=== PATIENT | male | born 1980 | race Caucasian/White ===

== ENCOUNTER 2021-05-15 21:16 | Emergency (ER) | payer SELFPAY ==
[~2021-05-15] VITALS: Ht 185.4 cm; Wt 72.0 kg
[2021-05-15] MEDS ORDERED: LORAZEPAM 1MG TABLET PO ONE (21:45)
[2021-05-15] MEDS ORDERED: MAGNESIUM/ALUMINUM HYDROXIDE/SIMETHICONE 30ML UDC PO ONE (21:45)
[2021-05-15] MEDS ORDERED: LORAZEPAM 2MG/ML CPJ IM STA (22:19)
[2021-05-15] MEDS ORDERED: HALOPERIDOL LACTATE 5MG/ML VIAL IM STA (22:19)
[2021-05-15] MEDS ORDERED: DIPHENHYDRAMINE 50MG/ML VIAL IM STA (22:19)
[2021-05-16 00:20] LABS: BASOPHILS % 0.5 % (0.0-2.0); EOSINOPHILS % 1.2 % (0.0-5.0); HEMATOCRIT. 43.9 % (42.0-52.0); HEMOGLOBIN. 14.9 g/dL (14.0-18.0); LYMPHOCYTES % 23.7 % (20.0-50.0); MEAN CORPUSCULAR HEMOGLOBIN 30.7 pg (28.0-32.0); MEAN CORPUSCULAR VOLUME 90.6 fL (80.0-94.0); MEAN PLATELET VOLUME 8.3 fl (7.4-10.4); MONOCYTES % 8.6 % (2.0-8.0); PLATELET 175 x1000/uL (130-400); RED BLOOD CELL COUNT 4.85 mill/uL (4.7-6.1); RED CELL DISTRIBUTION WIDTH 13.9 % (11.6-14.6)
[2021-05-16 00:25] LABS: CHLORIDE 107 mEq/L (98-107)
[2021-05-16 00:29] LABS: CLARITY URINE CLEAR (CLEAR); COLOR URINE YELLOW (YELLOW); KETONES URINE NEGATIVE (NEGATIVE); LEUKOCYTE ESTERASE URINE NEGATIVE (NEGATIVE); NITRITE URINE NEGATIVE (NEGATIVE); OCCULT BLOOD URINE NEGATIVE (NEGATIVE); PROTEIN URINE NEGATIVE (NEGATIVE); SPECIFIC GRAVITY URINE 1.012 (1.005-1.030); UROBILINOGEN URINE 0.2 E.U./dL (0.2-1.0)
[2021-05-16 00:34] LABS: ETHANOL BLOOD < 10 mg/dL
[2021-05-16 00:47] LABS: CANNABINOID URINE SCREEN PRESUMTIVE POSITIVE (NEGATIVE); OPIATES URINE SCREEN NEGATIVE (NEGATIVE); PHENCYCLIDINE URINE SCREEN NEGATIVE (NEGATIVE)
[2021-05-16 00:48] LABS: *AMPHETAMINES SCREEN URINE PRESUMTIVE POSITIVE (NEGATIVE); *BARBITURATES SCREEN URINE NEGATIVE (NEGATIVE); *BENZODIAZEPINES SCREEN URINE NEGATIVE (NEGATIVE); *COCAINE SCREEN URINE NEGATIVE (NEGATIVE)
[2021-05-16 01:05] LABS: METHADONE URINE SCREEN NEGATIVE (NEGATIVE)
[2021-05-16 04:51] VITALS: BP 97/67
== END 2021-05-16 04:52 | disposition home or self-care (01) ==
LOC: ER 21:16
DX: R06.02 Shortness of breath (principal); F19.10 Other psychoactive substance abuse, uncomplicated; I10 Essential (primary) hypertension; F17.290 Nicotine dependence, other tobacco product, uncomplicated; F12.10 Cannabis abuse, uncomplicated; F15.10 Other stimulant abuse, uncomplicated
CPT/HCPCS: 36415; 71045; 80053; 80305; 80307; 80320; 80329; 81003; 85025; 93005; 96372; 99285; J1200; J1630; J2060; G0480

== ENCOUNTER 2021-07-17 22:56 | Inpatient (IN) | payer MEDICAID ==
[~2021-07-17] VITALS: Ht 180.3 cm; Wt 81.6 kg
[2021-07-17] MEDS ORDERED: ACETAMINOPHEN 325MG TABLET PO STA (23:16)
[2021-07-17] MEDS ORDERED: PIPERACILLIN/TAZ 3.375G PREMIX 50 ML IV ONE (23:30)
[2021-07-17] MEDS ORDERED: VANCOMYCIN 1G PREMIX 200 ML IV ONE (23:30)
[2021-07-17] MEDS ORDERED: SODIUM CHLORIDE 0.9% 1000ML BAG (SEPSIS BOLUS) IV ONE (23:30)
[2021-07-17 23:43] LABS: BASOPHILS % 0.5 % (0.0-2.0); EOSINOPHILS % 1.3 % (0.0-5.0); HEMATOCRIT. 40.3 % (42.0-52.0); HEMOGLOBIN. 13.8 g/dL (14.0-18.0); MEAN CORPUSCULAR HEMOGLOBIN 30.9 pg (28.0-32.0); MEAN CORPUSCULAR VOLUME 90.2 fL (80.0-94.0); MEAN PLATELET VOLUME 7.7 fl (7.4-10.4); MONOCYTES % 10.3 % (2.0-8.0); NEUTROPHILS % 70.9 % (40.0-76.0); PLATELET 277 x1000/uL (130-400); RED BLOOD CELL COUNT 4.47 mill/uL (4.7-6.1); RED CELL DISTRIBUTION WIDTH 13.5 % (11.6-14.6)
[2021-07-17 23:48] LABS: CHLORIDE 103 mEq/L (98-107)
[2021-07-18] MEDS ORDERED: VANCOMYCIN 1GM PMX (XELLIA) 200 ML IV SCH
[2021-07-18 09:04] VITALS: BP 113/68
[2021-07-18 09:14] VITALS: BP 113/68
[2021-07-18] MEDS ORDERED: LORAZEPAM 0.5MG TABLET PO PRN (11:00)
[2021-07-18] MEDS ORDERED: CLONIDINE 0.1MG TABLET PO PRN (11:00)
[2021-07-18] MEDS ORDERED: ACETAMINOPHEN 325MG TABLET PO PRN (11:00)
[2021-07-18] MEDS ORDERED: IPRATROPIUM/ALBUTEROL 0.5-3(2.5)MG/3ML NEB HHN PRN (11:00)
[2021-07-18] MEDS ORDERED: DOCUSATE SODIUM 100MG CAPSULE PO PRN (11:00)
[2021-07-18] MEDS ORDERED: NALOXONE HCL 0.4MG/ML VIAL IV PRN (11:45)
[2021-07-18 12:00] VITALS: BP 123/67
[2021-07-18] MEDS ORDERED: SODIUM CHLORIDE 0.9% 1,000 ML IV SCH (12:00)
[2021-07-18] MEDS: VANCOMYCIN 1.25GM PMX (XELLIA) 250 ML IV SCH ×2 (13:51→21:59)
[2021-07-18] MEDS ORDERED: IOHEXOL-300 100 ML BOTTLE ONE (14:03)
[2021-07-18 14:10] LABS: *AMPHETAMINES SCREEN URINE NEGATIVE (NEGATIVE); *BARBITURATES SCREEN URINE NEGATIVE (NEGATIVE); *BENZODIAZEPINES SCREEN URINE NEGATIVE (NEGATIVE); *COCAINE SCREEN URINE NEGATIVE (NEGATIVE); METHADONE URINE SCREEN NEGATIVE (NEGATIVE)
[2021-07-18 14:11] LABS: CANNABINOID URINE SCREEN NEGATIVE (NEGATIVE); OPIATES URINE SCREEN NEGATIVE (NEGATIVE); PHENCYCLIDINE URINE SCREEN NEGATIVE (NEGATIVE)
[2021-07-18] MEDS: PIPERACILLIN/TAZOBACTAM 3.375 G in DEXTROSE 5% WATER 50 ML IV SCH ×2 (15:24→21:59)
[2021-07-18 18:04] VITALS: BP 110/75
[2021-07-18 20:00] VITALS: BP 102/60
[2021-07-19] VITALS: BP 109/66
[2021-07-19 04:00] VITALS: BP 111/61
[2021-07-19] MEDS: PIPERACILLIN/TAZOBACTAM 3.375 G in DEXTROSE 5% WATER 50 ML IV SCH ×3 (05:39→22:01)
[2021-07-19] MEDS: VANCOMYCIN 1.25GM PMX (XELLIA) 250 ML IV SCH ×2 (05:39→22:03)
[2021-07-19 08:00] VITALS: BP 105/61
[2021-07-19 12:00] VITALS: BP 110/68
[2021-07-19] MEDS ORDERED: SODIUM CHLORIDE 0.9% 1,000 ML IV SCH (12:00)
[2021-07-19] MEDS ORDERED: POLYMYXIN B SULFATE 500000 UNITS/VIAL ONE (15:18)
[2021-07-19] MEDS ORDERED: LIDOCAINE HCL/EPINEPHRINE 1%-EPI 1:100,000 20 ML VIAL ONE (15:18)
[2021-07-19] MEDS ORDERED: VANCOMYCIN HCL 1 GM/VIAL ONE (15:19)
[2021-07-19] MEDS ORDERED: LIDOCAINE HCL 1% 20ML VIAL (Pyxis) INJ ONE (16:13)
[2021-07-19] MEDS ORDERED: PROPOFOL 200MG/20ML VIAL IV ONE ×2 (16:13→17:02)
[2021-07-19] MEDS ORDERED: FENTANYL CITRATE/PF 50MCG/ML 2ML VIAL ONE (16:55)
[2021-07-19] MEDS ORDERED: MIDAZOLAM HCL 2 MG/2 ML VIAL ONE (16:56)
[2021-07-19] MEDS ORDERED: ROPIVACAINE HCL 10MG/ML 20 ML VIAL EPI ONE (17:26)
[2021-07-19] MEDS ORDERED: LABETALOL 5MG/ML SYR 20 MG/4 ML SYRINGE IV PRN (17:45)
[2021-07-19] MEDS ORDERED: MEPERIDINE HCL/PF 25MG/ML CPJ IV PRN (17:45)
[2021-07-19] MEDS ORDERED: ONDANSETRON HCL 4MG/2ML INJ IV PRN (17:45)
[2021-07-19] MEDS: HYDROMORPHONE HCL/PF 2MG/ML CPJ IV PRN ×2 (18:19→18:30)
[2021-07-19 20:00] VITALS: BP 125/71
[2021-07-19 20:42] LABS: CHLORIDE 107 mEq/L (98-107)
[2021-07-20] VITALS: BP 139/80
[2021-07-20] MEDS: VANCOMYCIN 1.25GM PMX (XELLIA) 250 ML IV SCH ×2 (02:58→21:42)
[2021-07-20 04:00] VITALS: BP 138/71
[2021-07-20] MEDS: HYDROCODONE/ACETAMINOPHEN 5/325MG TABLET PO PRN (04:34)
[2021-07-20] MEDS: PIPERACILLIN/TAZOBACTAM 3.375 G in DEXTROSE 5% WATER 50 ML IV SCH ×2 (06:29→18:32)
[2021-07-20 06:48] LABS: CHLORIDE 105 mEq/L (98-107)
[2021-07-20 07:01] LABS: BASOPHILS % 0.5 % (0.0-2.0); HEMATOCRIT. 39.5 % (42.0-52.0); HEMOGLOBIN. 13.5 g/dL (14.0-18.0); LYMPHOCYTES % 22.8 % (20.0-50.0); MEAN CORPUSCULAR HEMOGLOBIN 30.5 pg (28.0-32.0); MEAN CORPUSCULAR VOLUME 89.5 fL (80.0-94.0); MEAN PLATELET VOLUME 7.5 fl (7.4-10.4); MONOCYTES % 8.8 % (2.0-8.0); NEUTROPHILS % 64.9 % (40.0-76.0); PLATELET 348 x1000/uL (130-400); RED BLOOD CELL COUNT 4.41 mill/uL (4.7-6.1); RED CELL DISTRIBUTION WIDTH 13.6 % (11.6-14.6)
[2021-07-20 08:00] VITALS: BP 121/76
[2021-07-20] MEDS: HYDROCODONE/ACETAMINOPHEN 10/325MG TABLET PO PRN (08:04)
[2021-07-20 12:00] VITALS: BP 108/65
[2021-07-20] MEDS: MORPHINE SULFATE 2 MG/ML CPJ (NOT FOR IM USE) IV PRN ×2 (13:24→18:34)
[2021-07-20] MEDS: VANCOMYCIN 1GM PMX (XELLIA) 200 ML IV SCH ×2 (13:24→21:43)
[2021-07-20 16:00] VITALS: BP 121/72
[2021-07-20 20:00] VITALS: BP 109/69
[2021-07-21] VITALS: BP 112/65
[2021-07-21 04:00] VITALS: BP 113/71
[2021-07-21] MEDS: VANCOMYCIN 1GM PMX (XELLIA) 200 ML IV SCH ×3 (05:01→21:48)
[2021-07-21] MEDS: MORPHINE SULFATE 2 MG/ML CPJ (NOT FOR IM USE) IV PRN ×2 (05:09→15:14)
[2021-07-21 08:10] VITALS: BP 122/73
[2021-07-21 10:16] LABS: BASOPHILS % 0.7 % (0.0-2.0); EOSINOPHILS % 3.4 % (0.0-5.0); HEMATOCRIT. 40.7 % (42.0-52.0); HEMOGLOBIN. 13.7 g/dL (14.0-18.0); LYMPHOCYTES % 20.1 % (20.0-50.0); MEAN CORPUSCULAR HEMOGLOBIN 30.8 pg (28.0-32.0); MEAN CORPUSCULAR VOLUME 91.5 fL (80.0-94.0); MEAN PLATELET VOLUME 7.2 fl (7.4-10.4); MONOCYTES % 9.2 % (2.0-8.0); NEUTROPHILS % 66.6 % (40.0-76.0); PLATELET 333 x1000/uL (130-400); RED BLOOD CELL COUNT 4.45 mill/uL (4.7-6.1); RED CELL DISTRIBUTION WIDTH 13.8 % (11.6-14.6)
[2021-07-21 10:31] LABS: CHLORIDE 105 mEq/L (98-107)
[2021-07-21] MEDS: HYDROCODONE/ACETAMINOPHEN 10/325MG TABLET PO PRN ×2 (11:23→20:40)
[2021-07-21 12:02] VITALS: BP 116/70
[2021-07-21 16:10] VITALS: BP 127/68
[2021-07-21 20:00] VITALS: BP 116/71
[2021-07-22] VITALS: BP 113/67
[2021-07-22] MEDS: MORPHINE SULFATE 2 MG/ML CPJ (NOT FOR IM USE) IV PRN ×2 (00:47→14:18)
[2021-07-22 04:00] VITALS: BP 101/59
[2021-07-22 05:51] LABS: CHLORIDE 106 mEq/L (98-107); VANCOMYCIN TROUGH 14.7 ug/mL (5.0-10.0)
[2021-07-22 07:50] LABS: BASOPHILS % 1.1 % (0.0-2.0); EOSINOPHILS % 5.3 % (0.0-5.0); HEMATOCRIT. 38.1 % (42.0-52.0); HEMOGLOBIN. 13.2 g/dL (14.0-18.0); LYMPHOCYTES % 34.7 % (20.0-50.0); MEAN CORPUSCULAR HEMOGLOBIN 30.7 pg (28.0-32.0); MEAN CORPUSCULAR VOLUME 88.5 fL (80.0-94.0); MEAN PLATELET VOLUME 7.5 fl (7.4-10.4); NEUTROPHILS % 46.9 % (40.0-76.0); PLATELET 373 x1000/uL (130-400); RED CELL DISTRIBUTION WIDTH 13.4 % (11.6-14.6)
[2021-07-22] MEDS: HYDROCODONE/ACETAMINOPHEN 10/325MG TABLET PO PRN ×2 (08:28→17:53)
[2021-07-22 08:30] VITALS: BP 108/68
[2021-07-22] MEDS ORDERED: HYDR-4005 MT (09:04)
[2021-07-22] MEDS ORDERED: ACET650T37 MT (09:04)
[2021-07-22] MEDS ORDERED: NALO4SPR BOTHNSTRLS (09:04)
[2021-07-22] MEDS ORDERED: SULF1TAB48 MT (09:04)
[2021-07-22 12:30] VITALS: BP 117/59
[2021-07-22] MEDS: VANCOMYCIN 1GM PMX (XELLIA) 200 ML IV SCH ×2 (14:17→21:05)
[2021-07-22 16:30] VITALS: BP 110/66
[2021-07-22 20:00] VITALS: BP 110/63
[2021-07-22] MEDS: HYDROCODONE/ACETAMINOPHEN 5/325MG TABLET PO PRN (20:14)
[2021-07-23] VITALS: BP 105/63
[2021-07-23 04:00] VITALS: BP 101/63
[2021-07-23] MEDS: VANCOMYCIN 1GM PMX (XELLIA) 200 ML IV SCH ×3 (05:31→21:53)
[2021-07-23] MEDS: HYDROCODONE/ACETAMINOPHEN 5/325MG TABLET PO PRN ×2 (06:53→19:54)
[2021-07-23 08:00] VITALS: BP 105/60
[2021-07-23 12:00] VITALS: BP 108/62
[2021-07-23] MEDS: MORPHINE SULFATE 2 MG/ML CPJ (NOT FOR IM USE) IV PRN ×2 (12:56→17:03)
[2021-07-23 15:45] VITALS: BP 110/60
[2021-07-23 20:00] VITALS: BP 124/73
[2021-07-23] MEDS ORDERED: NALOXONE HCL 0.4MG/ML VIAL IV PRN (20:15)
[2021-07-24] VITALS: BP 116/73
[2021-07-24] MEDS: HYDROCODONE/ACETAMINOPHEN 5/325MG TABLET PO PRN ×3 (00:40→20:00)
[2021-07-24 04:00] VITALS: BP 125/72
[2021-07-24] MEDS: VANCOMYCIN 1GM PMX (XELLIA) 200 ML IV SCH ×3 (05:32→21:50)
[2021-07-24 08:15] VITALS: BP 100/61
[2021-07-24 12:26] VITALS: BP 113/64
[2021-07-24] MEDS: MORPHINE SULFATE 2 MG/ML CPJ (NOT FOR IM USE) IV PRN (14:51)
[2021-07-24 16:16] VITALS: BP 106/72
[2021-07-24 19:45] VITALS: BP 107/68
[2021-07-25] VITALS: BP 109/60
[2021-07-25 04:00] VITALS: BP 112/59
[2021-07-25] MEDS: HYDROCODONE/ACETAMINOPHEN 5/325MG TABLET PO PRN (05:02)
[2021-07-25 06:12] VITALS: BP 109/60
[2021-07-25] MEDS: VANCOMYCIN 1GM PMX (XELLIA) 200 ML IV SCH (06:22)
[2021-07-25 08:00] VITALS: BP 116/64
== END 2021-07-25 10:15 | disposition home health service (06) | DRG 720 ==
LOC: ER 22:56 → EDBEDREQDT 07-18 01:08 → EDBEDREQ 07-18 01:08 → EDBEDREQTM 07-18 01:08 → EDBEDREQSVC 07-18 01:08 → ENRESERV 07-18 07:21 → 6WST 07-18 09:01
PROVIDERS: ADMIT Internal Medicine; ATTEND Internal Medicine
PROC: 0JBN0ZZ Excision of Right Lower Leg Subcutaneous Tissue and Fascia, Open Approach (ICD-10-PCS; principal; 2021-07-19)
DX: A41.9 Sepsis, unspecified organism (principal); E44.0 Moderate protein-calorie malnutrition; L02.415 Cutaneous abscess of right lower limb; L97.819 Non-pressure chronic ulcer of other part of right lower leg with unspecified severity; L03.115 Cellulitis of right lower limb; M70.41 Prepatellar bursitis, right knee; R65.20 Severe sepsis without septic shock; F17.200 Nicotine dependence, unspecified, uncomplicated; I45.6 Pre-excitation syndrome; Z20.822 Contact with and (suspected) exposure to COVID-19; Z68.25 Body mass index [BMI] 25.0-25.9, adult
CPT/HCPCS: 36415; 73562; 73700; 80048; 80053; 80202; 80305; 83605; 84145; 85025; 86140; 87070; 87075; 87077; 87186; 87426; 93005; 93971; 97162; 97166; 97535; 99291; J1170; J2250; J2270; J2543; J2704; J2795; J3010; J3370; J3490; J7030; J7060; L1830; Q9967

== ENCOUNTER 2022-01-17 10:42 | Emergency (ER) | payer MEDICAID ==
[~2022-01-17] VITALS: Ht 182.9 cm; Wt 86.0 kg
[~2022-01-17 10:42] MED LIST: ACET-3163 MT; HYDR-4005 MT; NALO4SPR BOTHNSTRLS; SULF1TAB48 MT
[2022-01-17 10:53] VITALS: BP 114/73
[2022-01-17 11:30] LABS: CLARITY URINE CLEAR (CLEAR); COLOR URINE YELLOW (YELLOW); KETONES URINE NEGATIVE (NEGATIVE); LEUKOCYTE ESTERASE URINE NEGATIVE (NEGATIVE); NITRITE URINE NEGATIVE (NEGATIVE); OCCULT BLOOD URINE TRACE (NEGATIVE); PROTEIN URINE TRACE (NEGATIVE); UROBILINOGEN URINE 0.2 E.U./dL (0.2-1.0)
[2022-01-17 11:49] LABS: BASOPHILS % 0.9 % (0.0-2.0); EOSINOPHILS % 4.3 % (0.0-5.0); HEMATOCRIT. 43.4 % (42.0-52.0); LYMPHOCYTES % 37.9 % (20.0-50.0); MEAN CORPUSCULAR HEMOGLOBIN 31.4 pg (28.0-32.0); MEAN CORPUSCULAR VOLUME 90.7 fL (80.0-94.0); MEAN PLATELET VOLUME 7.5 fl (7.4-10.4); MONOCYTES % 9.7 % (2.0-8.0); NEUTROPHILS % 47.2 % (40.0-76.0); PLATELET 261 x1000/uL (130-400); RED BLOOD CELL COUNT 4.78 mill/uL (4.7-6.1); RED CELL DISTRIBUTION WIDTH 13.7 % (11.6-14.6)
[2022-01-17 11:50] LABS: CHLORIDE 103 mEq/L (98-107)
[2022-01-17 11:53] LABS: *AMPHETAMINES SCREEN URINE PRESUMTIVE POSITIVE (NEGATIVE); *BARBITURATES SCREEN URINE NEGATIVE (NEGATIVE); *BENZODIAZEPINES SCREEN URINE NEGATIVE (NEGATIVE); *COCAINE SCREEN URINE NEGATIVE (NEGATIVE); CANNABINOID URINE SCREEN NEGATIVE (NEGATIVE); METHADONE URINE SCREEN NEGATIVE (NEGATIVE); OPIATES URINE SCREEN NEGATIVE (NEGATIVE); PHENCYCLIDINE URINE SCREEN NEGATIVE (NEGATIVE)
[2022-01-17 11:57] LABS: ETHANOL BLOOD < 10 mg/dL
== END 2022-01-17 12:37 | disposition home or self-care (01) ==
LOC: ER 10:42
DX: F15.10 Other stimulant abuse, uncomplicated (principal); F12.10 Cannabis abuse, uncomplicated; J45.909 Unspecified asthma, uncomplicated
CPT/HCPCS: 36415; 80053; 80305; 80320; 81003; 85025; 93005; 99284; G0480

== ENCOUNTER 2022-02-24 19:01 | Emergency (ER) | payer MEDICAID ==
[~2022-02-24] VITALS: Ht 170.2 cm; Wt 77.0 kg
[2022-02-24 19:05] VITALS: BP 140/90
== END 2022-02-25 02:16 | disposition left against medical advice (07) ==
LOC: ER 19:03
DX: Z53.21 Procedure and treatment not carried out due to patient leaving prior to being seen by health care provider (principal)

== ENCOUNTER 2022-05-23 13:55 | Emergency (ER) | payer MEDICAID ==
[~2022-05-23] VITALS: Ht 177.8 cm; Wt 82.0 kg
[2022-05-23 13:58] VITALS: BP 126/80
== END 2022-05-23 17:25 | disposition left against medical advice (07) ==
LOC: ER 13:55
DX: Z53.21 Procedure and treatment not carried out due to patient leaving prior to being seen by health care provider (principal)

== ENCOUNTER 2022-05-24 20:14 | Inpatient (IN) | payer MEDICAID ==
[~2022-05-24] VITALS: Ht 180.3 cm; Wt 83.0 kg
[2022-05-24] MEDS ORDERED: CEFTRIAXONE 1GM PREMIX 50 ML IV ONE (21:45)
[2022-05-24] MEDS ORDERED: SODIUM CHLORIDE 0.9% 1000ML BAG (SEPSIS BOLUS) IV ONE (21:45)
[2022-05-24] MEDS ORDERED: VANCOMYCIN 1G PREMIX 200 ML IV ONE (21:45)
[2022-05-24 23:58] LABS: BASOPHILS % 0.5 % (0.0-2.0); EOSINOPHILS % 2.4 % (0.0-5.0); HEMOGLOBIN. 14.9 g/dL (14.0-18.0); LYMPHOCYTES % 18.3 % (20.0-50.0); MEAN CORPUSCULAR HEMOGLOBIN 30.8 pg (28.0-32.0); MEAN CORPUSCULAR VOLUME 91.1 fL (80.0-94.0); MEAN PLATELET VOLUME 7.8 fl (7.4-10.4); MONOCYTES % 8.2 % (2.0-8.0); NEUTROPHILS % 70.6 % (40.0-76.0); PLATELET 235 x1000/uL (130-400); RED BLOOD CELL COUNT 4.83 mill/uL (4.7-6.1); RED CELL DISTRIBUTION WIDTH 13.4 % (11.6-14.6)
[2022-05-25 00:07] LABS: CHLORIDE 102 mEq/L (98-107)
[2022-05-25 00:08] LABS: PROTHROMBIN TIME 10.6 sec (9.6-11.0)
[2022-05-25] MEDS ORDERED: PIPERACILLIN/TAZOBACTAM 3.375GM/50ML PREMIX IV NR (00:45)
[2022-05-25] MEDS ORDERED: IPRATROPIUM/ALBUTEROL 0.5-3(2.5)MG/3ML NEB HHN PRN (01:15)
[2022-05-25] MEDS ORDERED: DOCUSATE SODIUM 100MG CAPSULE PO PRN (01:15)
[2022-05-25] MEDS ORDERED: GUAIFENESIN 200MG/10ML SUGAR FREE UDC PO PRN (01:15)
[2022-05-25] MEDS ORDERED: ONDANSETRON HCL 4MG/2ML INJ IV PRN (01:15)
[2022-05-25] MEDS ORDERED: ACETAMINOPHEN 325MG TABLET PO PRN ×2 (01:15)
[2022-05-25] MEDS ORDERED: CLONIDINE 0.1MG TABLET PO PRN (01:15)
[2022-05-25] MEDS ORDERED: HYDROCODONE/ACETAMINOPHEN 5/325MG TABLET PO PRN (01:15)
[2022-05-25] MEDS ORDERED: VANCOMYCIN 1G PREMIX 200 ML IV NR (01:45)
[2022-05-25 04:12] LABS: ETHANOL BLOOD < 10 mg/dL; HDL CHOLESTEROL 98 mg/dL (40-59); LDL CHOLESTEROL 55 mg/dL (5-100)
[2022-05-25 05:46] LABS: BASOPHILS % 0.4 % (0.0-2.0); EOSINOPHILS % 2.3 % (0.0-5.0); HEMATOCRIT. 39.7 % (42.0-52.0); HEMOGLOBIN. 13.5 g/dL (14.0-18.0); LYMPHOCYTES % 13.7 % (20.0-50.0); MEAN CORPUSCULAR HEMOGLOBIN 30.8 pg (28.0-32.0); MEAN CORPUSCULAR VOLUME 90.6 fL (80.0-94.0); MEAN PLATELET VOLUME 7.8 fl (7.4-10.4); MONOCYTES % 8.7 % (2.0-8.0); NEUTROPHILS % 74.9 % (40.0-76.0); PLATELET 224 x1000/uL (130-400); RED BLOOD CELL COUNT 4.38 mill/uL (4.7-6.1); RED CELL DISTRIBUTION WIDTH 13.2 % (11.6-14.6)
[2022-05-25 06:00] LABS: CHLORIDE 103 mEq/L (98-107)
[2022-05-25 06:12] LABS: PHOSPHORUS 3.2 mg/dL (2.5-4.9)
[2022-05-25] MEDS ORDERED: VANCOMYCIN 1G PREMIX 200 ML IV SCH (08:00)
[2022-05-25] MEDS: ENOXAPARIN 40MG/0.4ML SYR SUBCUT SCH (09:00)
[2022-05-25] MEDS ORDERED: NALOXONE HCL 0.4MG/ML VIAL IV PRN (11:45)
[2022-05-25] MEDS: CEFEPIME 1,000 MG in DEXTROSE 5% WATER 50 ML IV SCH (13:00)
[2022-05-25] MEDS: VANCOMYCIN 1G PREMIX 200 ML IV SCH ×2 (14:14→23:01)
[2022-05-25] MEDS ORDERED: CEFEPIME HCL 1000MG/VIAL INJ IM SCH (21:00)
[2022-05-25] MEDS: FAMOTIDINE 20MG TABLET PO SCH (21:02)
[2022-05-25 21:32] VITALS: BP 112/71
[2022-05-26] MEDS: CEFEPIME 1,000 MG in DEXTROSE 5% WATER 50 ML IV SCH ×2 (01:00→15:21)
[2022-05-26 07:03] LABS: HEMATOCRIT 42.8 % (42.0-52.0); HEMOGLOBIN 14.9 g/dL (14.0-18.0); MEAN CORPUSCULAR HEMOGLOBIN 31.7 pg (28.0-32.0); MEAN CORPUSCULAR VOLUME 90.9 fL (80.0-94.0); PLATELET 231 x1000/uL (130-400); RED BLOOD CELL COUNT 4.71 mill/uL (4.7-6.1); RED CELL DISTRIBUTION WIDTH 13.1 % (11.6-14.6)
[2022-05-26 07:55] LABS: CHLORIDE 104 mEq/L (98-107)
[2022-05-26 08:00] VITALS: BP 112/68
[2022-05-26] MEDS: ENOXAPARIN 40MG/0.4ML SYR SUBCUT SCH (09:20)
[2022-05-26 12:00] VITALS: BP_SYST 108; BP_SYST 112; BP_DIAS 68; BP_DIAS 71
[2022-05-26] MEDS ORDERED: LIDOCAINE HCL 1% 10 MG/ML 10ML VIAL ONE (13:54)
[2022-05-26] MEDS: VANCOMYCIN 1.25GM PMX (XELLIA) 250 ML IV SCH ×3 (15:21→21:53)
[2022-05-26 16:00] VITALS: BP 112/68
[2022-05-26] MEDS ORDERED: IPRATROPIUM BROMIDE (0.02%) 0.5MG/2.5ML NEB HHN PRN (18:00)
[2022-05-26] MEDS ORDERED: ALBUTEROL (0.083%) 2.5MG/3ML NEB HHN PRN (18:00)
[2022-05-26 20:00] VITALS: BP 106/56
[2022-05-26] MEDS: FAMOTIDINE 20MG TABLET PO SCH (21:52)
[2022-05-27] VITALS: BP 117/56
[2022-05-27] MEDS: CEFEPIME 1,000 MG in DEXTROSE 5% WATER 50 ML IV SCH ×2 (00:31→13:01)
[2022-05-27 04:00] VITALS: BP 98/53
[2022-05-27] MEDS: VANCOMYCIN 1.25GM PMX (XELLIA) 250 ML IV SCH ×2 (05:22→13:06)
[2022-05-27 08:00] VITALS: BP 107/62
[2022-05-27] MEDS: ENOXAPARIN 40MG/0.4ML SYR SUBCUT SCH (08:40)
[2022-05-27] MEDS ORDERED: LINE600T14 PO (10:37)
[2022-05-27] MEDS ORDERED: LEVO-65 PO (10:37)
[2022-05-27] MEDS ORDERED: TOPUD PO (10:39)
[2022-05-27 12:00] VITALS: BP 119/60
[2022-05-27 12:41] LABS: HEMATOCRIT 45.1 % (42.0-52.0); HEMOGLOBIN 15.2 g/dL (14.0-18.0); MEAN CORPUSCULAR HEMOGLOBIN 30.7 pg (28.0-32.0); MEAN CORPUSCULAR VOLUME 91.1 fL (80.0-94.0); PLATELET 240 x1000/uL (130-400); RED BLOOD CELL COUNT 4.96 mill/uL (4.7-6.1); RED CELL DISTRIBUTION WIDTH 13.1 % (11.6-14.6)
[2022-05-27 12:53] LABS: CHLORIDE 102 mEq/L (98-107)
[2022-05-27 16:00] VITALS: BP 118/62
[2022-05-27] MEDS ORDERED: LIDOCAINE HCL 1% 20ML VIAL (Pyxis) INJ INFIL NR (16:00)
[2022-05-27 17:26] VITALS: BP 110/60
== END 2022-05-27 19:10 | disposition home or self-care (01) | DRG 383 ==
LOC: ER 20:14 → SUPCPDRO 23:57 → 6EST 05-25 00:40 → EDBEDREQ 05-25 01:16 → EDBEDREQTM 05-25 01:16
PROVIDERS: ADMIT Internal Medicine; ATTEND Internal Medicine
PROC: 02HV33Z Insertion of Infusion Device into Superior Vena Cava, Percutaneous Approach (ICD-10-PCS; principal; 2022-05-26)
PROC: B5181ZA Fluoroscopy of Superior Vena Cava using Low Osmolar Contrast, Guidance (ICD-10-PCS; 2022-05-26)
PROC: B548ZZA Ultrasonography of Superior Vena Cava, Guidance (ICD-10-PCS; 2022-05-26)
DX: L03.113 Cellulitis of right upper limb (principal); R65.10 Systemic inflammatory response syndrome (SIRS) of non-infectious origin without acute organ dysfunction; D64.9 Anemia, unspecified; F10.10 Alcohol abuse, uncomplicated; I45.6 Pre-excitation syndrome; J45.909 Unspecified asthma, uncomplicated; Z20.822 Contact with and (suspected) exposure to COVID-19; F17.210 Nicotine dependence, cigarettes, uncomplicated; Z79.899 Other long term (current) drug therapy
CPT/HCPCS: 36415; 36573; 71045; 73090; 73110; 73220; 80048; 80053; 80061; 80202; 80320; 83605; 83735; 84100; 84145; 84443; 84484; 85025; 85027; 87070; 87077; 87186; 87426; 93005; 93922; 93971; 99285; C1725; J0692; J1650; J2543; J3370; J3490; J7030; J7060; G0480

== ENCOUNTER 2022-06-24 23:57 | Emergency (ER) | payer MEDICAID ==
[~2022-06-24] VITALS: Ht 180.3 cm; Wt 81.0 kg
[~2022-06-24 23:57] MED LIST changes: -ACET-3163 MT; +LEVO-65 PO; +LINE600T14 PO; -SULF1TAB48 MT; +TOPUD PO
[2022-06-25] MEDS ORDERED: SULFAMETHOXAZOLE/TRIMETHOPRIM 800/160MG TABLET PO ONE (01:00)
[2022-06-25] MEDS ORDERED: TETANUS, DIPHTHERIA, PERTUSSIS VAC/PF 0.5ML (>10YR OLD) IM ONE (01:00)
[2022-06-25] MEDS ORDERED: BACITRACIN ZINC OINT UDPKT TOP ONE (01:00)
[2022-06-25] MEDS ORDERED: CEPHALEXIN 250MG CAPSULE PO ONE (01:00)
[2022-06-25] MEDS ORDERED: IBUPROFEN 600MG TABLET PO ONE (01:00)
[2022-06-25] MEDS ORDERED: IBUP-2029 MT (01:56)
[2022-06-25] MEDS ORDERED: CEPH500C2 MT (01:56)
[2022-06-25] MEDS ORDERED: SULF1TAB48 MT (01:56)
[2022-06-25 02:09] VITALS: BP 132/92
== END 2022-06-25 02:11 | disposition home or self-care (01) ==
LOC: ER 23:57
DX: M79.89 Other specified soft tissue disorders (principal); Z87.01 Personal history of pneumonia (recurrent); Z98.890 Other specified postprocedural states; Z79.899 Other long term (current) drug therapy; F12.10 Cannabis abuse, uncomplicated; F15.10 Other stimulant abuse, uncomplicated
CPT/HCPCS: 10060; 90471; 90715; 99284; Z7610

== ENCOUNTER 2023-11-22 04:29 | Emergency (ER) | payer MEDICAID ==
[~2023-11-22] VITALS: Ht 177.8 cm; Wt 90.0 kg
[~2023-11-22 04:29] MED LIST changes: +CEPH500C2 MT; +IBUP-2029 MT; +SULF1TAB48 MT
[2023-11-22 04:36] VITALS: O2SAT 100
[2023-11-22 06:13] LABS: BASOPHILS % 1.2 % (0.0-2.0); EOSINOPHILS % 2.7 % (0.0-5.0); HEMATOCRIT. 45.6 % (42.0-52.0); HEMOGLOBIN. 15.6 g/dL (14.0-18.0); LYMPHOCYTES % 35.5 % (20.0-50.0); MEAN CORPUSCULAR HEMOGLOBIN 31.1 pg (28.0-32.0); MEAN CORPUSCULAR HGB CONC 34.1 g/dL (31.0-37.0); MEAN CORPUSCULAR VOLUME 91.1 fL (80.0-94.0); MEAN PLATELET VOLUME 7.8 fl (7.4-10.4); MONOCYTES % 8.7 % (2.0-8.0); NEUTROPHILS % 51.9 % (40.0-76.0); PLATELET 245 x1000/uL (130-400); RED CELL DISTRIBUTION WIDTH 13.4 % (11.6-14.6); WHITE BLOOD COUNT 6.5 x1000/uL (4.5-11.0)
[2023-11-22 06:17] LABS: CARBON DIOXIDE 25 mEq/L (21-32); CHLORIDE 106 mEq/L (98-107); POTASSIUM 3.3 mEq/L (3.5-5.1); SODIUM 140 mEq/L (136-145)
[2023-11-22 06:18] LABS: CALCIUM 10.1 mg/dL (8.7-10.4)
[2023-11-22 06:23] LABS: GLUCOSE 109 mg/dL (70-105); UREA NITROGEN BLOOD 12 mg/dL (9-23)
[2023-11-22 06:58] VITALS: BP 120/85; PULSE 90; RESP 20; TEMP 36.83628; O2SAT 99
== END 2023-11-22 07:03 | disposition home or self-care (01) ==
LOC: ER 04:29
DX: F19.10 Other psychoactive substance abuse, uncomplicated (principal)
CPT/HCPCS: 36415; 71045; 80048; 85025; 99284